=== PATIENT | male | born 1965 | race Caucasian/White ===

== ENCOUNTER 2017-06-03 11:39 | Emergency (ER) | payer BC ==
[2017-06-03 11:43] VITALS: BP 125/83; PULSE 66; TEMP 98.3; BMI 27.3
--- NOTE | 2017-06-03 12:51 | PDOC ---
History of Present Illness - General Chief Complaint: Injury Stated Complaint: SWOLLEN LT FOREARM Time Seen by Provider: 06/03/17 12:25 History Source: Patient Exam Limitations: No Limitations - History of Present Illness Initial Comments: 06/03/17 12:48 CHIEF COMPLAINT: Left wrist injury HISTORY OF PRESENT ILLNESS: Patient is a 51-year-old male, no significant medical history currently no medication reports playing tennis today hyperextended left wrist hurt crack, now with pain, no deformity to left lateral wrist. Good range of motion to hand, no bruising erythema or edema. Occurred: reports: just prior to arrival Severity: reports: moderate Upper Extremity Pain Location: left: wrist Extremity Pain Location - Extremity Pain Location Extremity Pain Locations: left: other (wrist) Past History - Past Medical History Allergies/Adverse Reactions: Allergies Allergy/AdvReac Type Severity Reaction Status Date / Time No Known Allergies Allergy Unverified 06/03/17 11:43 Home Medications: Ambulatory Orders Ibuprofen [Motrin -] 600 mg PO TID #21 tablet 06/03/17 Other medical history: denies - Immunization History Immunization Up to Date: Yes - Suicide/Smoking/Psychosocial Hx Smoking History: Never smoked Information on smoking cessation initiated: No Hx Alcohol Use: No Drug/Substance Use Hx: No Substance Use Type: None Review of Systems - Review of Systems Constitutional: No: Symptoms Reported Respiratory: No: Symptoms reported Cardiac (ROS): No: Symptoms Reported Musculoskeletal: Yes: Joint Pain. No: Joint Swelling, Muscle Pain, Muscle Weakness, Joint Stiffness Integumentary: No: Symptoms Reported, Bruising, Erythema Neurological: No: Paresthesia, Tingling, Tremors All Other Systems: Reviewed and Negative *Physical Exam - Vital Signs Last Vital Signs Temp Pulse Resp BP Pulse Ox 98.3 F 66 18 125/83 99 06/03/17 11:41 06/03/17 11:41 06/03/17 11:41 06/03/17 11:41 06/03/17 11:41 - Physical Exam General Appearance: Yes: Appropriately Dressed. No: Apparent Distress Respiratory/Chest: positive: Lungs Clear, Normal Breath Sounds Cardiovascular: positive: Regular Rhythm, Regular Rate Extremity: positive: Normal Capillary Refill. negative: Normal Range of Motion (decreased range of motion to left wrist related to pain, no visible deformity erythema or edema. Pain to lateral wrist.), Swelling, Erythema, Inflammation Integumentary: positive: Normal Color, Dry. negative: Erythema, Swelling, Ecchymosis, Bruising Neurologic: positive: Alert, Normal Mood/Affect, Normal Response, Motor Strength 5/5 ED Treatment Course - RADIOLOGY Radiology Studies Ordered: Category Date Time Status WRIST-LEFT [RAD] Stat Radiology 06/03/17 12:28 Taken Medical Decision Making - Medical Decision Making 06/03/17 12:50 A/P: Patient here for evaluation of hyperextension injury to left wrist, sent for x-ray to rule out acute fracture. There is an old fracture deformity of the radius no acute fracture. Wrist splint placed on. We'll discharge patient on anti-inflammatories, follow-up with orthopedics I discussed the physical exam findings, ancillary test results and final diagnoses with the patient. I answered all of the patient's questions. The patient was satisfied with the care received and felt comfortable with the discharge plan and treatment plan. The patient will call to arrange follow-up and will return to the Emergency Department with any new, persistent or worsening symptoms. 06/03/17 16:46 *DC/Admit/Observation/Transfer Diagnosis at time of Disposition: Wrist injury Qualifiers: Encounter type: initial encounter Laterality: left Qualified Code(s): S69.92XA - Unspecified injury of left wrist, hand and finger(s), initial encounter - Discharge Dispostion Disposition: HOME Condition at time of disposition: Good Admit: No - Prescriptions Prescriptions: Ibuprofen [Motrin -] 600 mg PO TID #21 tablet - Referrals Referrals: Godwin Jj MD [Staff Physician] - - Patient Instructions Additional Instructions: 1. Please return to the emergency department with any redness, swelling, increased pain, or any other concerns. 2. Keep splint on. 3. Please follow up in the office of Dr. Jj within a week if pain persists. 4. No weightbearing 5. Ice and elevate when at rest. 6. Motrin for pain - Post Discharge Activity Forms/Work/School Notes: Back to Work
== END 2017-06-03 13:18 | disposition home or self-care (01) ==
LOC: JERFT 11:39
PROC: 2W3DX1Z Immobilization of Left Lower Arm using Splint (ICD-10-PCS; principal; 2017-06-03)
DX: S69.82XA Other specified injuries of left wrist, hand and finger(s), initial encounter (principal); X50.1XXA Overexertion from prolonged static or awkward postures, initial encounter; Y93.73 Activity, racquet and hand sports; Y92.312 Tennis court as the place of occurrence of the external cause; Y99.8 Other external cause status
CPT/HCPCS: 73110-TC-LT; 99281-25